=== PATIENT | female | born 1980 | race Caucasian/White ===

== ENCOUNTER 2017-09-18 11:08 | Outpatient (CLI) | payer MEDICAID | END 2017-09-18 12:51 | disposition home or self-care (01) | LOC: OBT 11:08 → L-D 11:08 → OBT 12:51 | DX: O36.8120 Decreased fetal movements, second trimester, not applicable or unspecified (principal); O09.522 Supervision of elderly multigravida, second trimester; Z3A.25 25 weeks gestation of pregnancy | CPT/HCPCS: 76818 ==

== ENCOUNTER 2017-10-29 06:05 | Outpatient (CLI) | payer MEDICAID ==
[2017-10-29 10:10] LABS: ADD UMIC NO; UR ASCORBIC ACID NEGATIVE (NEGATIVE); UR BILIRUBIN (Dip) NEGATIVE (NEGATIVE); UR BLOOD (Dip) NEGATIVE (NEGATIVE); UR CLARITY CLEAR (CLEAR); UR COLOR STRAW (YELLOW); UR GLUCOSE (Dip) NEGATIVE (NEGATIVE); UR KETONES (Dip) TRACE mg/dL (NEGATIVE); UR LEUKOCYTE ESTERASE (Dip) NEGATIVE Leu/ul (NEGATIVE); UR NITRITE (Dip) NEGATIVE (NEGATIVE); UR SPECIFIC GRAVITY (Dip) 1.004 (1.003-1.030); UR TOTAL PROTEIN (Dip) NEGATIVE (NEGATIVE); UR UROBILINOGEN (Dip) NEGATIVE (NEGATIVE)
== END 2017-10-29 08:28 | disposition home or self-care (01) ==
LOC: OBT 06:05 → L-D 06:05 → OBT 08:28
DX: O26.893 Other specified pregnancy related conditions, third trimester (principal); Z3A.31 31 weeks gestation of pregnancy; R50.9 Fever, unspecified
CPT/HCPCS: 76818; 81003

== ENCOUNTER 2017-10-29 08:48 | Emergency (ER) | payer MEDICAID ==
[2017-10-29] MEDS: ACETAMINOPHEN 325 MG TAB PO (09:53)
[2017-10-29 10:08] LABS: URINE BLOOD (Dip) POC Negative (NEGATIVE); URINE GLUCOSE (Dip) POC Negative (NEGATIVE); URINE KETONES (Dip) POC 2+ (NEGATIVE); URINE LEUKOCYTE EST (Dip) POC Negative (NEGATIVE); URINE NITRITE (Dip) POC Negative (NEGATIVE); URINE TOTAL PROTEIN POC Negative (NEGATIVE)
== END 2017-10-29 12:05 | disposition home or self-care (01) ==
LOC: FTE 08:48
DX: O99.89 Other specified diseases and conditions complicating pregnancy, childbirth and the puerperium (principal); R05 Cough; R09.81 Nasal congestion; R52 Pain, unspecified; Z3A.31 31 weeks gestation of pregnancy
CPT/HCPCS: 81003; 87400; 99283

== ENCOUNTER 2017-11-08 12:09 | Inpatient (IN) | payer MEDICAID ==
[2017-11-08] MEDS ORDERED: ACETAMINOPHEN 325 MG TAB PO (16:00)
[2017-11-08] MEDS: DEXTROSE 5%-LR 1,000 ML IV (16:19)
[2017-11-08] MEDS: LACTATED RINGER'S 1,000 ML IV ×2 (19:30→22:29)
[2017-11-09] MEDS: LACTATED RINGER'S 1,000 ML IV (06:35)
[2017-11-09] MEDS: PRENATAL VITAMIN PO (09:03)
[2017-11-09] MEDS: FERROUS SULFATE (EC) 325 MG TAB PO (09:03)
[2017-11-09] MEDS: DOCUSATE SODIUM 100 MG CAP PO (09:04)
== END 2017-11-09 11:00 | disposition home or self-care (01) | DRG 781 ==
LOC: OBT 12:09 → L-D 12:10 → OBT 15:00 → L-D 15:00
PROVIDERS: Obstetrics & Gynecology
DX: O41.03X0 Oligohydramnios, third trimester, not applicable or unspecified (principal); O24.419 Gestational diabetes mellitus in pregnancy, unspecified control; O09.523 Supervision of elderly multigravida, third trimester; Z3A.32 32 weeks gestation of pregnancy
CPT/HCPCS: 76815; 76816; 76818; 82962

== ENCOUNTER 2017-11-12 11:50 | Inpatient (IN) | payer MEDICAID ==
[2017-11-12] MEDS: LACTATED RINGER'S 1,000 ML IV ×2 (12:36→18:17)
[2017-11-12] MEDS: BETAMET NA PHOS/AC(6 MG/ML) 5ML INJ IM (12:50)
[2017-11-12] MEDS: PRENATAL VITAMIN PO (22:18)
[2017-11-12] MEDS: FERROUS SULFATE (EC) 325 MG TAB PO (22:18)
[2017-11-13] MEDS: LACTATED RINGER'S 1,000 ML IV ×3 (02:51→18:08)
[2017-11-13] MEDS: ACCU-CHEK XX ×7 (07:30→20:05)
[2017-11-13] MEDS: BETAMET NA PHOS/AC(6 MG/ML) 5ML INJ IM (12:17)
[2017-11-13] MEDS ORDERED: GLUCOSE GEL 15 GRAM TUBE BUCCAL (16:00)
[2017-11-13] MEDS ORDERED: GLUCAGON 1 MG INJ IM (16:00)
[2017-11-13] MEDS ORDERED: DEXTROSE 50% 50 ML SYRINGE IV ×2 (16:00)
[2017-11-13] MEDS ORDERED: GLUCOSE GEL 15 GRAM TUBE PO ×2 (16:00)
[2017-11-13] MEDS: INSULIN ASPART [NOVOLOG] 3 ML PEN SC (17:35)
[2017-11-13] MEDS: FERROUS SULFATE (EC) 325 MG TAB PO (21:27)
[2017-11-13] MEDS: PRENATAL VITAMIN PO (21:28)
[2017-11-14] MEDS: LACTATED RINGER'S 1,000 ML IV ×3 (04:01→17:49)
[2017-11-14] MEDS: ACCU-CHEK XX ×7 (09:02→18:13)
[2017-11-14] MEDS: INSULIN ASPART [NOVOLOG] 3 ML PEN SC ×3 (09:02→17:35)
[2017-11-14] MEDS: FERROUS SULFATE (EC) 325 MG TAB PO (09:03)
[2017-11-14] MEDS: MAGNESIUM SULFATE 4 GM/100 ML 100 ML IV (13:00)
[2017-11-14] MEDS: MAGNESIUM SULFATE 20 GM/500 ML 500 ML IV (13:02)
[2017-11-14 15:16] LABS: ADD MAN DIFF? NO
[2017-11-14 15:20] LABS: WHITE BLOOD COUNT 8.9 10^3/ul (4.8-10.8)
[2017-11-14 15:20] LABS: BASOPHILS % 0.2 % (0.0-2.0); EOSINOPHILS % 0.1 % (0.0-7.0); HEMATOCRIT 33.8 % (37.0-47.0); HEMOGLOBIN 11.7 g/dl (12.0-16.0); LYMPHOCYTES # 1.1 10^3/ul (0.8-2.9); MEAN CORPUSCULAR HEMOGLOBIN 30.8 pg (29.0-33.0); MEAN CORPUSCULAR HGB CONC 34.6 g/dl (32.0-37.0); MEAN CORPUSCULAR VOLUME 88.9 fl (82.0-101.0); MEAN PLATELET VOLUME 10.8 fl (7.4-10.4); MONOCYTE # 0.9 10^3/ul (0.3-0.9); MONOCYTES % 10.2 % (0.0-11.0); NEUTROPHIL # 6.8 10^3/ul (1.6-7.5); PLATELET COUNT 196 10^3/UL (140-415); RED CELL DISTRIBUTION WIDTH 13.6 % (11.5-14.5)
[2017-11-14 15:47] LABS: ALANINE AMINOTRANSFERASE 19 IU/L (13-69); ALBUMIN 3.2 g/dl (3.3-4.9); ALBUMIN/GLOBULIN RATIO 1.06; ALKALINE PHOSPHATASE 110 IU/L (42-121); ANION GAP 18 (8-16); ASPARTATE AMINO TRANSFERASE 13 IU/L (15-46); BILIRUBIN,INDIRECT 0.2 mg/dl (0-1.1); BILIRUBIN,TOTAL 0.2 mg/dl (0.2-1.3); BLOOD UREA NITROGEN 6 mg/dl (7-20); CALCIUM 7.9 mg/dl (8.4-10.2); CARBON DIOXIDE 17 mmol/L (21-31); CHLORIDE 111 mmol/L (97-110); GLUCOSE 98 mg/dl (70-220); POTASSIUM 3.5 mmol/L (3.5-5.1); SODIUM 142 mmol/L (135-144); TOTAL PROTEIN 6.2 g/dl (6.1-8.1)
[2017-11-14 18:48] LABS: ADD UMIC NO; UR ASCORBIC ACID NEGATIVE (NEGATIVE); UR BILIRUBIN (Dip) NEGATIVE (NEGATIVE); UR BLOOD (Dip) NEGATIVE (NEGATIVE); UR CLARITY CLEAR (CLEAR); UR COLOR STRAW (YELLOW); UR GLUCOSE (Dip) NEGATIVE (NEGATIVE); UR KETONES (Dip) 1+ mg/dL (NEGATIVE); UR LEUKOCYTE ESTERASE (Dip) NEGATIVE Leu/ul (NEGATIVE); UR NITRITE (Dip) NEGATIVE (NEGATIVE); UR SPECIFIC GRAVITY (Dip) 1.005 (1.003-1.030); UR TOTAL PROTEIN (Dip) NEGATIVE (NEGATIVE); UR UROBILINOGEN (Dip) NEGATIVE (NEGATIVE)
[2017-11-15] MEDS: MAGNESIUM SULFATE 20 GM/500 ML 500 ML IV ×2 (00:36→10:21)
[2017-11-15] MEDS: LACTATED RINGER'S 1,000 ML IV (06:03)
[2017-11-15] MEDS: INSULIN ASPART [NOVOLOG] 3 ML PEN SC (08:50)
[2017-11-15] MEDS: ACCU-CHEK XX ×5 (09:05→14:59)
[2017-11-15] MEDS: FERROUS SULFATE (EC) 325 MG TAB PO (09:39)
[2017-11-15 15:06] LABS: MAGNESIUM 4.6 mg/dl (1.7-2.5)
[2017-11-15 17:13] LABS: FREE T4 (FREE THYROXINE) 0.74 ng/dl (0.79-2.35)
== END 2017-11-15 17:05 | disposition home or self-care (01) | DRG 781 ==
LOC: OBT 11:50 → L-D 11:50 → OBT 11:50 → L-D 12:15 → PP1 14:57
PROVIDERS: Obstetrics & Gynecology
DX: O24.419 Gestational diabetes mellitus in pregnancy, unspecified control (principal); O41.03X0 Oligohydramnios, third trimester, not applicable or unspecified; O09.523 Supervision of elderly multigravida, third trimester; Z3A.33 33 weeks gestation of pregnancy
CPT/HCPCS: 76816; 76817; 76818; 80053; 81003; 82962; 83735; 84439; 84443; 85025; 85460; 86850; 86900; 86901; 87086; 94760

== ENCOUNTER 2017-11-19 10:51 | Outpatient (CLI) | payer MEDICAID ==
[2017-11-19] MEDS: LACTATED RINGER'S 1,000 ML IV* (12:05)
== END 2017-11-19 14:38 | disposition home or self-care (01) ==
LOC: OBT 10:51 → L-D 11:16 → OBT 14:38
DX: O41.03X0 Oligohydramnios, third trimester, not applicable or unspecified (principal); O09.523 Supervision of elderly multigravida, third trimester; Z3A.34 34 weeks gestation of pregnancy
CPT/HCPCS: 36415; 96360; 96361

== ENCOUNTER 2017-11-25 12:40 | Inpatient (IN) | payer MEDICAID ==
[2017-11-25 14:26] LABS: ADD MAN DIFF? NO
[2017-11-25 14:28] LABS: BASOPHILS % 0.3 % (0.0-2.0); EOSINOPHILS % 0.4 % (0.0-7.0); HEMATOCRIT 37.3 % (37.0-47.0); LYMPHOCYTES # 1.2 10^3/ul (0.8-2.9); LYMPHOCYTES % 17.9 % (15.0-51.0); MEAN CORPUSCULAR HEMOGLOBIN 31.1 pg (29.0-33.0); MEAN CORPUSCULAR HGB CONC 34.9 g/dl (32.0-37.0); MEAN CORPUSCULAR VOLUME 89.2 fl (82.0-101.0); MEAN PLATELET VOLUME 11.4 fl (7.4-10.4); MONOCYTE # 0.6 10^3/ul (0.3-0.9); MONOCYTES % 8.8 % (0.0-11.0); NEUTROPHIL # 4.9 10^3/ul (1.6-7.5); NEUTROPHILS % 72.2 % (39.0-77.0); PLATELET COUNT 169 10^3/UL (140-415); RED BLOOD COUNT 4.18 10^6/ul (4.20-5.40); RED CELL DISTRIBUTION WIDTH 14.2 % (11.5-14.5)
[2017-11-25 14:28] LABS: WHITE BLOOD COUNT 6.8 10^3/ul (4.8-10.8)
[2017-11-25] MEDS ORDERED: LIDOCAINE 1% (MPF) 30 ML INJ INJ (14:30)
[2017-11-25] MEDS ORDERED: MISOPROSTOL 200 MCG TAB PR (14:30)
[2017-11-25] MEDS ORDERED: BUTORPHANOL 2 MG INJ IV (14:30)
[2017-11-25] MEDS ORDERED: OXYTOCIN 30 UNITS/LR 500 ML IV (14:30)
[2017-11-25] MEDS ORDERED: IBUPROFEN 600 MG TAB PO (14:30)
[2017-11-25] MEDS ORDERED: METHYLERGONOVINE 0.2 MG INJ IM (14:30)
[2017-11-25] MEDS ORDERED: CARBOPROST 250 MCG INJ IM (14:30)
[2017-11-25 14:32] LABS: INR 0.91; PROTIME 12.3 Sec (11.9-14.9)
[2017-11-25 14:33] LABS: PARTIAL THROMBOPLASTIN TIME 27.4 Sec (25.0-35.0)
[2017-11-25] MEDS: BETAMET NA PHOS/AC(6 MG/ML) 5ML INJ IM ×2 (14:38→22:23)
[2017-11-25] MEDS: LACTATED RINGER'S 1,000 ML IV ×2 (14:39→17:39)
[2017-11-25 15:12] LABS: HEPATITIS B SURFACE ANTIGEN NEGATIVE (NEGATIVE)
[2017-11-25 17:16] LABS: GLUCOSE 77 mg/dl (70-220)
[2017-11-25 22:21] LABS: RAPID PLASMA REAGIN NONREACTIVE (NR)
[2017-11-25] MEDS ORDERED: OXYCODONE/ACETAMINOPHEN (5/325) TAB PO (22:30)
[2017-11-25] MEDS ORDERED: LACTATED RINGER'S 1,000 ML IV (22:30)
[2017-11-25] MEDS: DEXTROSE 5%-LR 1,000 ML IV (22:30)
[2017-11-25] MEDS: DINOPROSTONE 10 MG VAG SUPP VAG (23:34)
[2017-11-25] MEDS: AMPICILLIN 2 GM/NS (PMX) 100 ML IV (23:34)
[2017-11-26] MEDS: LACTATED RINGER'S 1,000 ML IV ×3 (03:03→20:26)
[2017-11-26] MEDS: AMPICILLIN 1 GM/NS (PMX) 50 ML IV ×6 (03:04→23:04)
[2017-11-26] MEDS: OXYTOCIN 30 UNITS/LR 500 ML IV (23:40)
[2017-11-27] MEDS ORDERED: DIPHENHYDRAMINE 50 MG INJ IV
[2017-11-27] MEDS ORDERED: SENNA/DOCUSATE NA (8.6MG/50MG) TAB PO
[2017-11-27] MEDS ORDERED: DIBUCAINE 1% 30 GM OINT PR
[2017-11-27] MEDS ORDERED: ONDANSETRON 4 MG INJ IV
[2017-11-27] MEDS ORDERED: LANOLIN 7 GM TUBE TOP
[2017-11-27] MEDS ORDERED: OXYTOCIN 30 UNITS/LR 500 ML IV
[2017-11-27] MEDS ORDERED: DIPHENHYDRAMINE 25 MG CAP PO
[2017-11-27] MEDS ORDERED: CARBOPROST 250 MCG INJ IM
[2017-11-27] MEDS ORDERED: MISOPROSTOL 200 MCG TAB PR
[2017-11-27] MEDS ORDERED: ACETAMINOPHEN 325 MG TAB PO ×2
[2017-11-27] MEDS ORDERED: HYDROCODONE/APAP (5/325) TAB PO ×2
[2017-11-27] MEDS ORDERED: MAGNESIUM HYDROXIDE 30ML CUP PO
[2017-11-27] MEDS ORDERED: METHYLERGONOVINE 0.2 MG INJ IM
[2017-11-27] MEDS ORDERED: ONDANSETRON 4 MG TAB PO
[2017-11-27 00:17] LABS: AADO2 Cord Arterial 83.5 mmHg; Arterial Cord Blood pCO2 31.2 mmHG (25-50); CBA Base Excess -12.5 mmol/L; CBA COHb 1.1 %; CBA Oxygen Sat 67.9 mmHG; CBA Total Hemglobin 9.3 g/dl; Cord Blood Arterial pO2 28.9 mmHG (15.0-45.0); Fraction OxyHgb Cord Arterial 66.4 %; MODE ROOM AIR; MetHgb Cord Arterial 1.1 %; Sample Type CBA; Sample Type CBV; Site CORD; Venous COHb 1.7 %; Venous Fraction OxyHgb 73.6 %; Venous Oxygen Sat 75.6 mmHG (55.0-75.0); Venous Total Hemglobin 14.5 g/dl
[2017-11-27] MEDS: OXYTOCIN 30 UNITS/LR 500 ML IV (00:18)
[2017-11-27] MEDS: IBUPROFEN 800 MG TAB PO ×5 (02:23→23:21)
[2017-11-27] MEDS: LACTATED RINGER'S 1,000 ML IV* (05:49)
[2017-11-27 08:03] LABS: ADD MAN DIFF? NO
[2017-11-27 08:04] LABS: BASOPHILS % 0.2 % (0.0-2.0); EOSINOPHILS % 0.2 % (0.0-7.0); HEMATOCRIT 36.2 % (37.0-47.0); HEMOGLOBIN 12.5 g/dl (12.0-16.0); LYMPHOCYTES # 1.4 10^3/ul (0.8-2.9); LYMPHOCYTES % 11.5 % (15.0-51.0); MEAN CORPUSCULAR HEMOGLOBIN 30.6 pg (29.0-33.0); MEAN CORPUSCULAR HGB CONC 34.5 g/dl (32.0-37.0); MEAN CORPUSCULAR VOLUME 88.7 fl (82.0-101.0); MEAN PLATELET VOLUME 10.6 fl (7.4-10.4); MONOCYTE # 1.2 10^3/ul (0.3-0.9); NEUTROPHIL # 9.4 10^3/ul (1.6-7.5); NEUTROPHILS % 77.7 % (39.0-77.0); PLATELET COUNT 159 10^3/UL (140-415); RED BLOOD COUNT 4.08 10^6/ul (4.20-5.40); RED CELL DISTRIBUTION WIDTH 14.2 % (11.5-14.5)
[2017-11-27 08:04] LABS: WHITE BLOOD COUNT 12.1 10^3/ul (4.8-10.8)
[2017-11-28] MEDS: IBUPROFEN 800 MG TAB PO ×2 (05:10→11:27)
[2017-11-28] MEDS: MEASLES,MUMPS,RUBELLA VACCINE INJ SC* (07:37)
[2017-11-28] MEDS: VARICELLA VACCINE LIVE/PF 1,350 UNIT/0.5 ML ML SC* (09:00)
[2017-11-28] MEDS: DIPHTH/TET/ACEL PERTUSS (ADULT) 0.5 ML VIAL IM* (10:01)
== END 2017-11-28 16:30 | disposition home or self-care (01) | DRG 775 ==
LOC: PP1 11-27 14:49 → L-D 12:40
PROVIDERS: Obstetrics & Gynecology
PROC: 10E0XZZ Delivery of Products of Conception, External Approach (ICD-10-PCS; principal; 2017-11-27)
PROC: 3E033VJ Introduction of Other Hormone into Peripheral Vein, Percutaneous Approach (ICD-10-PCS; 2017-11-27)
DX: O24.429 Gestational diabetes mellitus in childbirth, unspecified control (principal); O60.14X0 Preterm labor third trimester with preterm delivery third trimester, not applicable or unspecified; O41.03X0 Oligohydramnios, third trimester, not applicable or unspecified; O69.81X0 Labor and delivery complicated by cord around neck, without compression, not applicable or unspecified; Z3A.35 35 weeks gestation of pregnancy; Z37.0 Single live birth
CPT/HCPCS: 36415; 36600; 82803; 82947; 82962; 85025; 85610; 85730; 86592; 86850; 86900; 86901; 87340; 90715

== ENCOUNTER 2019-03-07 21:11 | Emergency (ER) | payer MEDICAID ==
[2019-03-07 23:02] LABS: AMPHETAMINE/METHAMPHETAMINE Negative (NEGATIVE); BARBITURATES Negative (NEGATIVE); BENZODIAZEPINES Negative (NEGATIVE); CANNABINOIDS Positive (NEGATIVE); COCAINE Negative (NEGATIVE); OPIATES Negative (NEGATIVE)
== END 2019-03-08 00:02 | disposition home or self-care (01) ==
LOC: E/R 03-08 00:02
DX: F12.920 Cannabis use, unspecified with intoxication, uncomplicated (principal); R40.2142 Coma scale, eyes open, spontaneous, at arrival to emergency department; R40.2252 Coma scale, best verbal response, oriented, at arrival to emergency department; R40.2362 Coma scale, best motor response, obeys commands, at arrival to emergency department; Z87.891 Personal history of nicotine dependence
CPT/HCPCS: 80307; 99282